=== PATIENT | male | born 1970 ===

== ENCOUNTER 2016-12-29 13:21 | Emergency (ER) | payer OTHER ==
[2016-12-29] MEDS ORDERED: Sodium Chloride 0.9% 1,000 ML IV STA (14:27)
--- NOTE | 2016-12-29 14:33 | ED PDOC ---
Arrival/HPI - General Chief Complaint: Dizziness/Lightheaded Time Seen by Provider: 12/29/16 14:18 Historian: Patient - History of Present Illness Narrative History of Present Illness (Text): 12/29/16 14:28 46yo male with no PMhx who present with complaint of positional dizziness x 2weeks. States dizziness became worse over the past few days with associated nausea. Dizziness is usually with sudden turning or flexion of his head. He notes that he has been having tinnitus for months now. 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 He also reports occipital headache. He denies focal weakness, chest pain, SOB, aphasia, abdominal pain, vomiting, visual changes, any other complaint. Past Medical History - Provider Review Nursing Documentation Reviewed: Yes - Infectious Disease Hx of Infectious Diseases: None - Psychiatric Hx Substance Use: No - Anesthesia Hx Anesthesia: No Hx Anesthesia Reactions: No Hx Malignant Hyperthermia: No Family/Social History - Physician Review Nursing Documentation Reviewed: Yes Family/Social History: Unknown Family HX Smoking Status: Never Smoked Hx Alcohol Use: Yes Frequency of alcohol use: Socially Hx Substance Use: No Allergies/Home Meds Allergies/Adverse Reactions: Allergies No Known Allergies Allergy (Verified 12/29/16 14:17) Review of Systems - Physician Review All systems were reviewed & negative as marked: Yes - Review of Systems Constitutional: Normal Eyes: Normal ENT: Normal Respiratory: Normal Cardiovascular: Normal Gastrointestinal: Nausea. absent: Abdominal Pain, Constipation, Diarrhea Genitourinary Male: Normal Musculoskeletal: Normal Skin: Normal Neurological: Headache, Dizziness. absent: Focal Weakness, Gait Changes, Speech Changes Endocrine: Normal Hemo/Lymphatic: Normal Psychiatric: Normal Physical Exam Vital Signs Reviewed: Yes Vital Signs Temp Pulse Resp BP Pulse Ox 12/29/16 14:32 98.4 F 68 16 129/79 100 12/29/16 14:12 98.8 F 85 20 136/88 99 Temperature: Afebrile Blood Pressure: Normal Pulse: Regular Respiratory Rate: Normal Appearance: Positive for: Well-Appearing, Non-Toxic, Comfortable Pain Distress: None Mental Status: Positive for: Alert and Oriented X 3 - Systems Exam Head: Present: Atraumatic, Normocephalic Pupils: Present: PERRL Extroacular Muscles: Present: EOMI Conjunctiva: Present: Normal Ears: Present: Normal, NORMAL TM Mouth: Present: Moist Mucous Membranes Neck: Present: Normal Range of Motion Respiratory/Chest: Present: Clear to Auscultation, Good Air Exchange. No: Respiratory Distress, Accessory Muscle Use Cardiovascular: Present: Regular Rate and Rhythm, Normal S1, S2. No: Murmurs Abdomen: Present: Normal Bowel Sounds. No: Tenderness, Distention, Peritoneal Signs, Rebound, Guarding, McBurney's Point Tender, Rovsing's Sign Present Back: Present: Normal Inspection Upper Extremity: Present: Normal Inspection. No: Cyanosis, Edema Lower Extremity: Present: Normal Inspection. No: Edema Neurological: Present: GCS=15, CN II-XII Intact, Speech Normal, Motor Func Grossly Intact, Normal Sensory Function, Normal Cerebellar Funct, Norm Deep Tendon Reflexes, Gait Normal, Memory Normal, Normal 2Pt Descrimination, Other ( No focal neurological deficit) Skin: Present: Warm, Dry, Normal Color. No: Rashes Psychiatric: Present: Alert, Oriented x 3, Normal Insight, Normal Concentration Medical Decision Making ED Course and Treatment: 12/29/16 16:54 Pt presented for stated history. He was hemodymanically stable in ED. Neurologically intact. On re evaluation he states his dizziness resolved with medication in ED Lab was unremarkable. Head CT no acute derangement. Result was DW the pt. He was DC home with a rx of Meclizine. He have a ENT and was referred his ENT. Advised TRT ED for any new or worsening symptoms - Lab Interpretations Lab Results: 12/29/16 15:00 12/29/16 15:00 Lab Results 12/29/16 15:00: Sodium 141, Potassium 4.0, Chloride 102, Carbon Dioxide 28, Anion Gap 15, BUN 13, Creatinine 0.8, Est GFR ( Amer) > 60, Est GFR (Non- Af Amer) > 60, Random Glucose 91, Calcium 9.7, Total Bilirubin 0.8, AST 30, ALT 53, Alkaline Phosphatase 67, Lactate Dehydrogenase 451, Total Creatine Kinase 79 , Troponin I < 0.01, Total Protein 7.6, Albumin 4.2, Globulin 3.4, Albumin/ Globulin Ratio 1.2 12/29/16 15:00: PT 10.3, INR 0.95, APTT 25.8 12/29/16 15:00: WBC 8.4, RBC 5.44, Hgb 16.6, Hct 46.7, MCV 85.8, MCH 30.5, MCHC 35.5, RDW 13.3, Plt Count 214, MPV 10.4, Gran % 49.6 L, Lymph % (Auto) 40.4 H, [place] % (Auto) 8.1 H, Eos % (Auto) 1.4 L, Baso % (Auto) 0.5, Gran # 4.15, Lymph # 3.4, [place] # 0.7 H, Eos # 0.1, Baso # 0.04 - RAD Interpretation Radiology Orders: 12/29/16 14:26 HEAD W/O CONTRAST [CT] Stat - EKG Interpretation Interpreted by ED Physician: Yes (NSR @69bpm) - Medication Orders Current Medication Orders: Discontinued Medications Sodium Chloride (Sodium Chloride 0.9%) 1,000 mls @ 999 mls/hr IV .Q1H1M STA Stop: 12/29/16 15:27 Last Admin: 12/29/16 15:45 Dose: 999 mls/hr Meclizine HCl (Antivert) 25 mg PO STAT STA Stop: 12/29/16 14:28 Last Admin: 12/29/16 15:45 Dose: 25 mg Ondansetron HCl (Zofran Inj) 4 mg IVP STAT STA Stop: 12/29/16 14:29 Last Admin: 12/29/16 16:34 Dose: Not Given Non-Admin Reason: Patient Refused Disposition/Present on Arrival - Present on Arrival Any Indicators Present on Arrival: No History of DVT/PE: No History of Uncontrolled Diabetes: No Urinary Catheter: No History of Decub. Ulcer: No History Surgical Site Infection Following: None - Disposition Have Diagnosis and Disposition been Completed?: Yes Diagnosis: Vertigo Disposition: HOME/ ROUTINE Disposition Time: 16:20 Patient Plan: Discharge Patient Problems: Current Active Problems Problem Status Onset Vertigo Acute Condition: STABLE Discharge Instructions (ExitCare): Vertigo (ED) Additional Instructions: Follow up with your Doctor/ENT Return to ED for any new or worsening symptoms Prescriptions: Meclizine [Meclizine*] 25 mg PO Q6 #15 tab Referrals: Donny Gaxiola DO [Staff Provider] - Follow up with primary
[2016-12-29 14:35] VITALS: BP 129/79; PULSE 68; RESP 16; TEMP 98.4; O2SAT 100
--- NOTE | 2016-12-29 14:57 | CT ---
PROCEDURE: CT HEAD WITHOUT CONTRAST. HISTORY: headache COMPARISON: None available. TECHNIQUE: Axial computed tomography images were obtained through the head/brain without intravenous contrast. Radiation dose: Total exam DLP = 725.84 rivera mGy-cm. This CT exam was performed using one or more of the following dose reduction techniques: Automated exposure control, adjustment of the mA and/or kV according to patient size, and/or use of iterative reconstruction technique. FINDINGS: HEMORRHAGE: No intracranial hemorrhage. BRAIN: No obvious parenchymal nor extra-axial mass or collection. No evidence of edema or mass effect. No atrophy or chronic microvascular ischemic changes. VENTRICLES: Ventricular and sulcal size are within range of normal for this patient's stated age. No evidence of obstructive type hydrocephalus. CALVARIUM: Unremarkable. PARANASAL SINUSES: Frontal sinuses are slightly underpneumatized. The remaining visualized paranasal sinuses are well-developed and currently well-aerated. Minimal mucosal thickening seen within 1 or 2 ethmoid air cells. Rivera rivera rivera No evidence of fluid levels seen to suggest acute sinusitis. MASTOID AIR CELLS: Unremarkable as visualized. No inflammatory changes. OTHER FINDINGS: None. IMPRESSION: No acute intracranial hemorrhage. No obvious parenchymal nor extra-axial mass or collection
[2016-12-29 15:25] LABS: ADD MANUAL DIFF? NO
[2016-12-29 15:28] LABS: BASO # 0.04 K/mm3 (0.0-2.0); BASO % 0.5 % (0.0-3.0); EOS # 0.1 (0.0-0.7); EOS % 1.4 % (1.5-5.0); GRAN # 4.15 (1.4-6.5); GRAN % 49.6 % (50.0-68.0); HEMATOCRIT 46.7 % (42.0-52.0); LYMPH # 3.4 (1.2-3.4); LYMPH % 40.4 % (22.0-35.0); MEAN CELL VOLUME 85.8 fL (80.0-105.0); MEAN CORPUSCULAR HEMOGLOBIN 30.5 pg (25.0-35.0); MEAN CORPUSCULAR HGB CONC 35.5 g/dl (31.0-37.0); MEAN PLATELET VOLUME 10.4 fl (7.0-11.0); MONO # 0.7 (0.1-0.6); MONO % 8.1 % (1.0-6.0); PLATELET COUNT 214 10^3/uL (120.0-450.0); RED CELL DISTRIBUTION WIDTH 13.3 % (11.5-14.5); WHITE BLOOD COUNT 8.4 10^3/ul (4.5-11.0)
[2016-12-29 15:39] LABS: ALB/GLOB RATIO 1.2 (1.1-1.8); ALKALINE PHOSPHATASE 67 U/L (38-133); ALT/SGPT 53 U/L (7-56); AST/SGOT 30 U/L (15-59); BILIRUBIN,TOTAL 0.8 mg/dL (0.2-1.3); BLOOD UREA NITROGEN 13 mg/dL (7-21); CALCIUM 9.7 mg/dL (8.4-10.5); CARBON DIOXIDE 28 mmol/L (21-33); CHLORIDE 102 mmol/L (98-107); GFR AFRICAN-AMERICAN > 60; GLUCOSE,RANDOM 91 mg/dL (70-110); INR 0.95 (0.93-1.08); PARTIAL THROMBOPLASTIN TIME 25.8 Seconds (23.7-30.8); SODIUM 141 mmol/L (132-148); TOTAL PROTEIN 7.6 g/dL (5.8-8.3)
[2016-12-29 15:56] LABS: TROPONIN I < 0.01 ng/mL
--- NOTE | 2016-12-30 09:17 | CARD ---
APPROVED REPORT EKG Measurement Heart [id number] <Conclusion> Normal sinus rhythm Normal ECG
== END 2016-12-29 16:45 | disposition home or self-care (01) ==
LOC: ED 13:21
DX: R42 Dizziness and giddiness (principal)
CPT/HCPCS: 70450; 80053; 82550; 83615; 84484; 85025; 85610; 85730; 93005; 99285; J7040